=== PATIENT | female | born 1985 | race Caucasian/White ===

== ENCOUNTER 2024-06-08 06:42 | Emergency (ER) | payer SELFPAY ==
[~2024-06-08] VITALS: Ht 180.3 cm; Wt 77.3 kg
[2024-06-08 06:51] VITALS: TEMP 97.8
[2024-06-08 07:24] LABS: BASO # 0.1 K/mm3 (0.0-0.2); BASO % 0.7 % (0.0-2.0); EOS # 0.3 K/mm3 (0.0-0.7); EOS % 3.3 % (0.0-4.0); GRAN # 4.5 K/mm3 (1.4-6.5); GRAN % 58.3 % (42.2-75.2); HEMATOCRIT 40.2 % (37.0-47.0); HEMOGLOBIN 13.8 g/dl (12.5-16.0); LYMPH # 2.2 K/mm3 (1.2-3.4); LYMPH % 28.3 % (20.0-51.0); MEAN CELL VOLUME 91 fl (80.0-100.0); MEAN CORPUSCULAR HEMOGLOBIN 31 pg (27-31); MEAN CORPUSCULAR HGB CONC 34 g/dl (33.0-37.0); MONO # 0.7 K/mm3 (0.1-0.6); MONO % 9.1 % (1.7-9.3); PLATELET COUNT 193 K/mm3 (130-400); REDCELL DISTRIBUTION WIDTH-CV 13.3 % (11.5-14.5)
[2024-06-08 07:46] LABS: ALANINE AMINOTRANSFERASE 19 U/L (0-55); ALKALINE PHOSPHATASE 42 U/L (40-150); ANION GAP 10 mmol/L (7-16); AST,SGOT 17 U/L (5-34); BILIRUBIN,TOTAL 0.3 mg/dL (0.2-1.2); BLOOD UREA NITROGEN 8 mg/dL (7-19); CALCIUM 9.2 mg/dL (8.4-10.2); CHLORIDE 108 mEq/L (98-107); CREATININE, serum 0.88 mg/dL (0.57-1.11); GLUCOSE 94 mg/dL (70-99); LIPASE 16 U/L (8-78); POTASSIUM 3.5 mEq/L (3.5-4.5); SODIUM 141 mEq/L (136-145); TOTAL PROTEIN 6.8 g/dl (6.2-8.1)
[2024-06-08 07:55] LABS: TROPONIN-I < 0.010 ng/mL (0.00-0.033)
[2024-06-08 08:05] LABS: THYROID STIMULATING HORMONE 2.115 uIU/mL (0.350-4.940)
[2024-06-08 08:15] LABS: PH 7.5 (5.0-8.5); URINE APPEARANCE CLEAR (CLEAR/HAZY); URINE BLOOD NEGATIVE (NEGATIVE); URINE COLOR YELLOW (YELLOW); URINE GLUCOSE NEGATIVE (NEGATIVE); URINE KETONE NEGATIVE (NEGATIVE); URINE NITRATE NEGATIVE (NEGATIVE); URINE PROTEIN(semi-quant) NEGATIVE (NEGATIVE); URINE UROBILINOGEN 0.2 E.U/dL (0.2-1.0)
[2024-06-08 08:20] LABS: PROTHROMBIN TIME 10.7 SECONDS (9.7-12.8)
[2024-06-08 08:32] LABS: COLLECTION METHOD CLEAN CATCH
[2024-06-08] MEDS ORDERED: Ketorolac 15 MG/ML VIAL IV ONE (09:00)
[2024-06-08] MEDS ORDERED: NORCO 325 MG-51 TAB PO (09:58)
[2024-06-08 10:07] VITALS: BP 107/69; PULSE 75
== END 2024-06-08 10:27 | disposition home or self-care (01) ==
LOC: COL.ER 06:42
PROVIDERS: Family Medicine
DX: R07.89 Other chest pain (principal); R00.2 Palpitations; Z95.2 Presence of prosthetic heart valve
CPT/HCPCS: J1885